=== PATIENT | male | born 1990 | race Two or more races ===

== ENCOUNTER 2017-04-15 16:56 | Emergency (ER) | payer BC ==
[2017-04-15] MEDS: ONDANSETRON ODT 4 MG TAB.RAPDIS. PO ×2 (18:43)
[2017-04-15] MEDS: IV NORMAL SALINE 1000ML BAG 1,000 ML IV ×2 (18:43)
== END 2017-04-15 19:18 | disposition home or self-care (01) ==
LOC: ER 16:56
DX: E86.0 Dehydration (principal); A08.4 Viral intestinal infection, unspecified; F12.10 Cannabis abuse, uncomplicated
CPT/HCPCS: 99284; J7030; Q0162

== ENCOUNTER 2017-06-28 18:37 | Emergency (ER) | payer BC ==
[2017-06-28] MEDS: HYDROcodone/APAP 5/325MG 1 TAB TABLET PO (19:10)
== END 2017-06-28 19:11 | disposition home or self-care (01) ==
LOC: ER 18:37
DX: S39.94XA Unspecified injury of external genitals, initial encounter (principal); F12.10 Cannabis abuse, uncomplicated; W50.1XXA Accidental kick by another person, initial encounter; Y93.89 Activity, other specified; Y92.89 Other specified places as the place of occurrence of the external cause; Y99.8 Other external cause status
CPT/HCPCS: 99283

== ENCOUNTER 2017-07-04 03:56 | Inpatient (IN) | payer BC ==
[2017-07-04] MEDS: fentaNYL PF VIAL 100 MCG/2 ML VIAL IV ×7 (05:14→23:53)
[2017-07-04] MEDS: ONDANSETRON PF 4 MG/2 ML VIAL. IV (05:15)
[2017-07-04] MEDS: IV NORMAL SALINE 1000ML BAG 1,000 ML IV ×4 (05:15→22:30)
[2017-07-04 05:21] LABS: AGAP ISTAT 16 mmol/L (6-14); BUN ISTAT 11 mg/dL (8-26); CHLORIDE ISTAT 101 mmol/L (98-110); CREATININE ISTAT 0.9 mg/dL (0.5-1.4); GLUCOSE ISTAT 108 mg/dL (70-99); HEMATOCRIT ISTAT 42 % (37-52); HEMOGLOBIN ISTAT 14.3 g/dL (14-18); ION CA ISTAT 1.16 mmol/L (1.13-1.32); POTASSIUM ISTAT 3.8 mmol/L (3.5-5.0); SODIUM ISTAT 138 mmol/L (135-145); TOT CO2 ISTAT 25 mmol/L (23-32)
[2017-07-04 05:42] LABS: BILIRUBIN,URINE NEGATIVE (NEG); CLARITY,URINE CLEAR; COLOR,URINE YELLOW; GLUCOSE,URINE NEGATIVE (NEG); NITRITE,URINE NEGATIVE (NEG); PH,URINE 5.5; PROTEIN,URINE NEGATIVE (NEG-TRACE)
[2017-07-04 05:50] LABS: ADD MAN DIFF? NO
[2017-07-04 05:53] LABS: BASO # 0.1 x10^3/uL (0.0-0.2); BASO % 1 % (0-3); EOS # 0.1 x10^3/uL (0.0-0.7); EOS % 1 % (0-3); HEMATOCRIT 41.7 % (39.0-53.0); HEMOGLOBIN 14.6 g/dL (13.0-17.5); LYMPH # 1.9 x10^3/uL (1.0-4.8); LYMPH % 14 % (24-48); MEAN CORPUSCULAR HEMOGLOBIN 30 pg (25-35); MEAN CORPUSCULAR HGB CONC 35 g/dL (31-37); MEAN CORPUSCULAR VOLUME 84 fL (79-100); MONO % 8 % (0-9); NEUT # 10.3 x10^3uL (1.8-7.7); NEUT % 77 % (31-73); PLATELET COUNT 290 x10^3/uL (140-400); RED BLOOD COUNT 4.96 x10^6/uL (4.30-5.70); RED CELL DISTRIBUTION WIDTH 12.8 % (11.5-14.5); WHITE BLOOD COUNT 13.3 x10^3/uL (4.0-11.0)
[2017-07-04 05:55] LABS: BACTERIA,URINE 0 /HPF (0-FEW); RBC,URINE 0 /HPF (0-2); SQUAMOUS EPITHELIAL CELL,UR FEW /LPF; WBC,URINE 0 /HPF (0-4)
[2017-07-04] MEDS ORDERED: levOFLOXacin PER PHARMACY. MC (06:00)
[2017-07-04 06:03] LABS: ANION GAP 7 (6-14); BLOOD UREA NITROGEN 12 mg/dL (8-26); BUN/CREATININE RATIO 12 (6-20); CALCIUM 9.2 mg/dL (8.5-10.1); CARBON DIOXIDE 27 mmol/L (21-32); CHLORIDE 101 mmol/L (98-107); GFR 90.3; GLUCOSE 108 mg/dL (70-99); POTASSIUM 3.8 mmol/L (3.5-5.1); SODIUM 135 mmol/L (136-145)
[2017-07-04 06:08] LABS: ALBUMIN 3.3 g/dL (3.4-5.0); ALBUMIN/GLOBULIN RATIO 0.7 (1.0-1.7); ALK PHOS 156 U/L (46-116); ALT (SGPT) 154 U/L (16-63); AST (SGOT) 58 U/L (15-37); TOTAL BILIRUBIN 0.4 mg/dL (0.2-1.0); TOTAL PROTEIN 7.8 g/dL (6.4-8.2)
[2017-07-04] MEDS ORDERED: ONDANSETRON PF 4 MG/2 ML VIAL. IV (06:15)
[2017-07-04] MEDS ORDERED: LACTOBACILLUS RHAMNOSUS GG 1 CAPSULE. PO (09:00)
[2017-07-04] MEDS: LACTOBACILLUS RHAMNOSUS GG 1 CAPSULE. PO (20:42)
[2017-07-04] MEDS: ACETAMINOPHEN 325 MG TABLET. PO (20:42)
[2017-07-04 22:16] LABS: LACTIC ACID 1.1 mmol/L (0.4-2.0)
[2017-07-05] MEDS: fentaNYL PF VIAL 100 MCG/2 ML VIAL IV ×5 (03:00→20:21)
[2017-07-05] MEDS: ACETAMINOPHEN 325 MG TABLET. PO (03:27)
[2017-07-05] MEDS: HYDROcodone/APAP 5/325MG 1 TAB TABLET PO (04:00)
[2017-07-05 05:07] LABS: ADD MAN DIFF? NO
[2017-07-05 05:25] LABS: BASO # 0.1 x10^3/uL (0.0-0.2); BASO % 1 % (0-3); EOS # 0.1 x10^3/uL (0.0-0.7); EOS % 0 % (0-3); HEMATOCRIT 39.7 % (39.0-53.0); HEMOGLOBIN 13.7 g/dL (13.0-17.5); LYMPH # 2.1 x10^3/uL (1.0-4.8); LYMPH % 14 % (24-48); MEAN CORPUSCULAR HEMOGLOBIN 29 pg (25-35); MEAN CORPUSCULAR HGB CONC 35 g/dL (31-37); MEAN CORPUSCULAR VOLUME 85 fL (79-100); MONO # 1.4 x10^3/uL (0.0-1.1); MONO % 9 % (0-9); NEUT # 11.3 x10^3uL (1.8-7.7); NEUT % 75 % (31-73); PLATELET COUNT 287 x10^3/uL (140-400); RED BLOOD COUNT 4.67 x10^6/uL (4.30-5.70); RED CELL DISTRIBUTION WIDTH 12.9 % (11.5-14.5)
[2017-07-05 05:46] LABS: ALBUMIN 3.2 g/dL (3.4-5.0); ALBUMIN/GLOBULIN RATIO 0.7 (1.0-1.7); ALK PHOS 133 U/L (46-116); ALT (SGPT) 122 U/L (16-63); ANION GAP 10 (6-14); AST (SGOT) 35 U/L (15-37); BLOOD UREA NITROGEN 10 mg/dL (8-26); BUN/CREATININE RATIO 10 (6-20); CALCIUM 9.2 mg/dL (8.5-10.1); CARBON DIOXIDE 25 mmol/L (21-32); CHLORIDE 101 mmol/L (98-107); GFR 90.3; GLUCOSE 61 mg/dL (70-99); POTASSIUM 3.8 mmol/L (3.5-5.1); SODIUM 136 mmol/L (136-145); TOTAL BILIRUBIN 0.8 mg/dL (0.2-1.0); TOTAL PROTEIN 7.5 g/dL (6.4-8.2)
[2017-07-05] MEDS: LACTOBACILLUS RHAMNOSUS GG 1 CAPSULE. PO ×2 (07:18→20:17)
[2017-07-05] MEDS: IV NORMAL SALINE 1000ML BAG 1,000 ML IV (13:49)
[2017-07-05] MEDS: ONDANSETRON PF 4 MG/2 ML VIAL. IV (14:06)
[2017-07-05] MEDS: AMPICILLIN/SULBACTAM IV Push 3 GM VIAL. IVP ×2 (15:20→20:00)
[2017-07-05] MEDS ORDERED: AMPICILLIN/SULBACTAM 3 GM in IV NORMAL SALINE 100ML 100 ML IV (18:00)
[2017-07-06] MEDS: AMPICILLIN/SULBACTAM IV Push 3 GM VIAL. IVP ×4 (00:01→18:13)
[2017-07-06] MEDS: IV NORMAL SALINE 1000ML BAG 1,000 ML IV ×3 (00:01→18:16)
[2017-07-06] MEDS: fentaNYL PF VIAL 100 MCG/2 ML VIAL IV ×3 (00:06→05:51)
[2017-07-06 09:17] LABS: ADD MAN DIFF? NO
[2017-07-06 09:21] LABS: BASO # 0.1 x10^3/uL (0.0-0.2); BASO % 1 % (0-3); EOS # 0.1 x10^3/uL (0.0-0.7); EOS % 2 % (0-3); HEMATOCRIT 36.9 % (39.0-53.0); LYMPH # 1.8 x10^3/uL (1.0-4.8); LYMPH % 23 % (24-48); MEAN CORPUSCULAR HEMOGLOBIN 30 pg (25-35); MEAN CORPUSCULAR HGB CONC 35 g/dL (31-37); MEAN CORPUSCULAR VOLUME 84 fL (79-100); MONO # 0.8 x10^3/uL (0.0-1.1); MONO % 10 % (0-9); NEUT # 5.1 x10^3uL (1.8-7.7); NEUT % 65 % (31-73); PLATELET COUNT 268 x10^3/uL (140-400); RED BLOOD COUNT 4.38 x10^6/uL (4.30-5.70); RED CELL DISTRIBUTION WIDTH 12.8 % (11.5-14.5); WHITE BLOOD COUNT 7.9 x10^3/uL (4.0-11.0)
[2017-07-06] MEDS: LACTOBACILLUS RHAMNOSUS GG 1 CAPSULE. PO ×2 (09:41→21:18)
[2017-07-06 10:02] LABS: ANION GAP 9 (6-14); BLOOD UREA NITROGEN 13 mg/dL (8-26); CARBON DIOXIDE 27 mmol/L (21-32); CHLORIDE 103 mmol/L (98-107); GFR 90.3; GLUCOSE 96 mg/dL (70-99); POTASSIUM 3.8 mmol/L (3.5-5.1); SODIUM 139 mmol/L (136-145)
[2017-07-06] MEDS: HYDROcodone/APAP 5/325MG 1 TAB TABLET PO (12:55)
[2017-07-06 14:21] LABS: HCV ANTIBODY <0.1 s/co ratio (0.0-0.9); HEP A IGM ABDY Negative (Negative); HEP B SURFACE AG Negative (Negative)
[2017-07-07] MEDS: AMPICILLIN/SULBACTAM IV Push 3 GM VIAL. IVP ×4 (00:23→17:39)
[2017-07-07] MEDS: HYDROcodone/APAP 5/325MG 1 TAB TABLET PO (00:29)
[2017-07-07] MEDS: fentaNYL PF VIAL 100 MCG/2 ML VIAL IV (02:13)
[2017-07-07] MEDS: IV NORMAL SALINE 1000ML BAG 1,000 ML IV ×2 (05:38→15:53)
[2017-07-07] MEDS: LACTOBACILLUS RHAMNOSUS GG 1 CAPSULE. PO ×2 (08:47→21:06)
[2017-07-08] MEDS: AMPICILLIN/SULBACTAM IV Push 3 GM VIAL. IVP ×3 (00:33→11:08)
[2017-07-08] MEDS: IV NORMAL SALINE 1000ML BAG 1,000 ML IV (06:22)
[2017-07-08] MEDS: LACTOBACILLUS RHAMNOSUS GG 1 CAPSULE. PO (08:21)
== END 2017-07-08 16:05 | disposition home or self-care (01) | DRG 392 ==
LOC: ER 03:56 → 4 NORTH 05:55
DX: K57.20 Diverticulitis of large intestine with perforation and abscess without bleeding (principal); D72.829 Elevated white blood cell count, unspecified; R74.0 Nonspecific elevation of levels of transaminase and lactic acid dehydrogenase [LDH]; E66.9 Obesity, unspecified; Z68.33 Body mass index [BMI] 33.0-33.9, adult
CPT/HCPCS: 36415; 74176; 80047; 80048; 80053; 80074; 81001; 83605; 85025; 87040; 96361; 96374; 99285; 99285-25; J0295; J1956; J2405; J3010; J3490; J7030